=== PATIENT | male | born 1930 | race Caucasian/White ===

== ENCOUNTER → 2017-04-18 | Outpatient (CLI) | payer MEDICARE | END | disposition home or self-care (01) | LOC: CFH 12:03 | PROVIDERS: ATTEND Nurse Practitioner Primary Care | DX: I08.3 Combined rheumatic disorders of mitral, aortic and tricuspid valves (principal); I37.1 Nonrheumatic pulmonary valve insufficiency; I51.7 Cardiomegaly; E03.9 Hypothyroidism, unspecified; E78.2 Mixed hyperlipidemia; E55.9 Vitamin D deficiency, unspecified | CPT/HCPCS: 93306 ==

== ENCOUNTER → 2017-05-09 | Outpatient (CLI) | payer MEDICARE ==
[~2017-05-09] MED LIST: OMNIPAQUE 350 MG/ML, 100ML BOTTLE ONE
== END | disposition home or self-care (01) ==
LOC: CFH 11:54
PROVIDERS: ATTEND Nurse Practitioner Primary Care
DX: I77.810 Thoracic aortic ectasia (principal); I72.2 Aneurysm of renal artery; I77.4 Celiac artery compression syndrome; E55.9 Vitamin D deficiency, unspecified; E03.9 Hypothyroidism, unspecified; N28.9 Disorder of kidney and ureter, unspecified; E78.2 Mixed hyperlipidemia; E88.81 Metabolic syndrome and other insulin resistance; R53.83 Other fatigue; G25.0 Essential tremor; H35.30 Unspecified macular degeneration; K22.70 Barrett's esophagus without dysplasia; R41.89 Other symptoms and signs involving cognitive functions and awareness; R01.1 Cardiac murmur, unspecified; R93.1 Abnormal findings on diagnostic imaging of heart and coronary circulation
CPT/HCPCS: 71275; 82565; 93978; Q9967

== ENCOUNTER → 2017-06-27 | Outpatient (CLI) | payer MEDICARE ==
[~2017-06-27] MED LIST changes: -OMNIPAQUE 350 MG/ML, 100ML BOTTLE ONE; +REGADENOSON 0.4 MG/5 ML SYRINGE ONE
== END | disposition home or self-care (01) ==
LOC: CFH 07:48
PROVIDERS: ATTEND Internal Medicine Cardiovascular Disease
DX: I10 Essential (primary) hypertension (principal); R94.31 Abnormal electrocardiogram [ECG] [EKG]; I45.10 Unspecified right bundle-branch block
CPT/HCPCS: 78452; 93017; A9502; J2785

== ENCOUNTER 2018-05-04 15:56 | Inpatient (IN) | payer MEDICARE ==
[~2018-05-04] VITALS: Ht 172.7 cm; Wt 88.4 kg
[2018-05-04 16:30] LABS: BASOPHILS # (AUTO) 0.05 x10^3/uL (0-0.1); BASOPHILS % (AUTO) 1 % (0-1); EOSINOPHILS # (AUTO) 0.08 x10^3/uL (0-0.4); EOSINOPHILS % (AUTO) 1 % (1-7); LYMPHOCYTES # (AUTO) 1.69 x10^3/uL (1-3.4); LYMPHOCYTES % (AUTO) 26 % (22-44); MD NO; MEAN CORPUSCULAR HEMOGLOBIN 30.1 pg (27.5-34.5); MEAN CORPUSCULAR HGB CONC 33.2 g/dL (33.2-36.2); MEAN CORPUSCULAR VOLUME 90.6 fL (81-97); MONOCYTES # (AUTO) 0.47 x10^3/uL (0.2-0.8); MONOCYTES % (AUTO) 7 % (2-9); NEUTROPHILS # (AUTO) 4.19 x10^3/uL (1.8-6.8); NEUTROPHILS % (AUTO) 65 % (42-75); PLATELET COUNT 124 x10^3/uL (130-400); RED BLOOD COUNT 4.43 x10^6/uL (4.38-5.82); RED CELL DISTRIBUTION WIDTH 14.7 % (9.4-14.8)
[2018-05-04] MEDS ORDERED: ASPIRIN 81 MG TABLET CHEW PO ONE (16:30)
[2018-05-04] MEDS ORDERED: PLEASE ENTER HEIGHT AND WEIGHT MC SCH (16:30)
[2018-05-04] MEDS ORDERED: PLEASE ENTER ALLERGIES MC SCH (16:30)
[2018-05-04] MEDS ORDERED: SODIUM CHLORIDE FLUSH 10ML SYR IVF ONE (16:30)
[2018-05-04 16:39] LABS: INTERNATIONAL NORMALIZED RATIO 1.05 (0.93-1.1); PROTHROMBIN TIME 10.8 Seconds (9.6-11.5)
[2018-05-04 16:43] LABS: ALBUMIN 3.4 g/dL (3.4-5.0); ANION GAP 6 mmol/L (5-15); CALCIUM 7.8 mg/dL (8.5-10.1); CHLORIDE 112 mmol/L (98-107)
[2018-05-04 16:48] LABS: ALANINE AMINOTRANSFERASE 55 U/L (12-78); ALKALINE PHOSPHATASE 72 U/L (45-117); BILIRUBIN,TOTAL 0.9 mg/dL (0.2-1.0); CREATININE 1.71 mg/dL (0.7-1.3); TOTAL PROTEIN 6.4 g/dL (6.4-8.2); TROPONIN I 0.016 ng/mL (0.000-0.045)
[2018-05-04] MEDS ORDERED: PROP10TA PO (17:14)
[2018-05-04] MEDS ORDERED: LEVO75TA5 PO (17:14)
[2018-05-04] MEDS ORDERED: OMEP-110 PO (17:14)
[2018-05-04] MEDS ORDERED: FLUT9.9S NAS (17:18)
[2018-05-04] MEDS ORDERED: CEPH-375 PO (17:23)
[2018-05-04] MEDS ORDERED: SIMV40TA3 PO (17:23)
[2018-05-04] MEDS ORDERED: HEPARIN 25,000 UNITS/500ML PMX 500 ML IV PRN (18:00)
[2018-05-04] MEDS ORDERED: HEPARIN 25,000 UNITS/500ML PMX 500 ML ONE (18:07)
[2018-05-04] MEDS ORDERED: HEPARIN 5,000 UNITS/ML, 1ML ONE (18:07)
[2018-05-04] MEDS ORDERED: HEPARIN 5,000 UNITS/ML, 1ML IV PRN (18:30)
[2018-05-04] MEDS ORDERED: HEPARIN 5,000 UNITS/ML, 1ML IV ONE (18:30)
[2018-05-04] MEDS ORDERED: ENOXAPARIN 80 MG/0.8 ML SQ ONE (18:30)
[2018-05-04 18:37] VITALS: BP 154/88
[2018-05-04] MEDS ORDERED: DOCUSATE 100 MG CAPSULE PO PRN (23:00)
[2018-05-04] MEDS ORDERED: hydrALAzine 20 MG/ML, 1ML IVPush PRN (23:00)
[2018-05-04] MEDS ORDERED: HEPARIN 5,000 UNITS/ML, 1ML SQ SCH (23:00)
[2018-05-04] MEDS ORDERED: POLYETHYLENE GLYCOL 17 GM PACKET PO PRN (23:00)
[2018-05-04] MEDS ORDERED: ACETAMINOPHEN 325 MG TABLET PO PRN (23:00)
[2018-05-04] MEDS: SODIUM CHLORIDE 0.9% 1,000 ML IV SCH (23:51)
[2018-05-05 00:55] VITALS: BP 108/61
[2018-05-05] MEDS: HEPARIN 5,000 UNITS/ML, 1ML IV PRN ×2 (01:58→18:05)
[2018-05-05 03:21] LABS: MICROSCOPIC NOT IND
[2018-05-05 03:32] LABS: CULTURE INDICATED? NO
[2018-05-05 04:52] LABS: BASOPHILS # (AUTO) 0.03 x10^3/uL (0-0.1); BASOPHILS % (AUTO) 1 % (0-1); EOSINOPHILS # (AUTO) 0.11 x10^3/uL (0-0.4); EOSINOPHILS % (AUTO) 2 % (1-7); LYMPHOCYTES # (AUTO) 1.31 x10^3/uL (1-3.4); LYMPHOCYTES % (AUTO) 25 % (22-44); MD NO; MEAN CORPUSCULAR HEMOGLOBIN 30.8 pg (27.5-34.5); MEAN CORPUSCULAR HGB CONC 34.1 g/dL (33.2-36.2); MEAN CORPUSCULAR VOLUME 90.4 fL (81-97); MEAN PLATELET VOLUME 8.1 fL (7.4-10.4); MONOCYTES # (AUTO) 0.37 x10^3/uL (0.2-0.8); MONOCYTES % (AUTO) 7 % (2-9); NEUTROPHILS # (AUTO) 3.47 x10^3/uL (1.8-6.8); NEUTROPHILS % (AUTO) 66 % (42-75); PLATELET COUNT 107 x10^3/uL (130-400); RED BLOOD COUNT 4.16 x10^6/uL (4.38-5.82); RED CELL DISTRIBUTION WIDTH 14.6 % (9.4-14.8)
[2018-05-05 05:01] LABS: ANION GAP 7 mmol/L (5-15); CALCIUM 8.1 mg/dL (8.5-10.1); CHLORIDE 114 mmol/L (98-107)
[2018-05-05 05:22] LABS: ALANINE AMINOTRANSFERASE 47 U/L (12-78); ALKALINE PHOSPHATASE 61 U/L (45-117); BILIRUBIN,TOTAL 0.9 mg/dL (0.2-1.0); CHOL/HDL RATIO 3.5; CHOLESTEROL, TOTAL 133 mg/dL (140-239); CREATININE 1.62 mg/dL (0.7-1.3); FREE T4 (FREE THYROXINE) 1.23 ng/dL (0.76-1.46); HDL CHOL % 29 % (26-37); HDL CHOLESTEROL (DIRECT) 38 mg/dL (40-60); LDL CHOLESTEROL,CALCULATED 83 mg/dL (54-169); LDL/HDL RATIO 2.2 (0.5-3.0); TOTAL PROTEIN 5.9 g/dL (6.4-8.2); TRIGLYCERIDES 61 mg/dL (50-200); VLDL CHOLESTEROL 12 mg/dL (0-25)
[2018-05-05 05:25] LABS: HEMOGLOBIN A1C 6.2 % (4.2-6.3)
[2018-05-05 06:44] VITALS: BP 147/84
[2018-05-05] MEDS: LEVOTHYROXINE 75 MCG TABLET PO SCH (07:46)
[2018-05-05] MEDS: FLUTICASONE NASAL SPRAY 16GM NAS SCH ×2 (07:46→20:35)
[2018-05-05] MEDS: OMEPRAZOLE 20 MG CAPSULE.DR PO SCH ×2 (07:46→20:35)
[2018-05-05 12:28] VITALS: BP 153/69
[2018-05-05] MEDS: SODIUM CHLORIDE 0.9% 1,000 ML IV SCH (12:43)
[2018-05-05 19:35] VITALS: BP 126/62
[2018-05-05] MEDS: HEPARIN 25,000 UNITS/500ML PMX 500 ML IV PRN (20:25)
[2018-05-05] MEDS: SIMVASTATIN 40 MG TABLET PO SCH (20:35)
[2018-05-06] MEDS: HEPARIN 5,000 UNITS/ML, 1ML IV PRN (00:40)
[2018-05-06 03:07] VITALS: BP 119/62
[2018-05-06 06:50] VITALS: BP 138/76
[2018-05-06] MEDS: OMEPRAZOLE 20 MG CAPSULE.DR PO SCH ×2 (08:31→20:46)
[2018-05-06] MEDS: LEVOTHYROXINE 75 MCG TABLET PO SCH (08:32)
[2018-05-06] MEDS: FLUTICASONE NASAL SPRAY 16GM NAS SCH ×2 (08:32→20:45)
[2018-05-06] MEDS ORDERED: SODIUM CHLORIDE 0.9% 1,000 ML IV ONE (10:49)
[2018-05-06 13:32] VITALS: BP 115/74
[2018-05-06] MEDS: HEPARIN 25,000 UNITS/500ML PMX 500 ML IV PRN (16:47)
[2018-05-06 19:19] VITALS: BP 108/65
[2018-05-06] MEDS: SIMVASTATIN 40 MG TABLET PO SCH (20:47)
[2018-05-07 00:52] VITALS: BP 129/80
[2018-05-07 05:36] LABS: INTERNATIONAL NORMALIZED RATIO 1.04 (0.93-1.1); PROTHROMBIN TIME 10.7 Seconds (9.6-11.5)
[2018-05-07 05:44] LABS: BASOPHILS # (AUTO) 0.02 x10^3/uL (0-0.1); BASOPHILS % (AUTO) 0 % (0-1); EOSINOPHILS # (AUTO) 0.08 x10^3/uL (0-0.4); EOSINOPHILS % (AUTO) 1 % (1-7); LYMPHOCYTES # (AUTO) 0.99 x10^3/uL (1-3.4); LYMPHOCYTES % (AUTO) 15 % (22-44); MD NO; MEAN CORPUSCULAR HEMOGLOBIN 30.5 pg (27.5-34.5); MEAN CORPUSCULAR HGB CONC 33.5 g/dL (33.2-36.2); MEAN PLATELET VOLUME 8.1 fL (7.4-10.4); MONOCYTES # (AUTO) 0.41 x10^3/uL (0.2-0.8); MONOCYTES % (AUTO) 6 % (2-9); NEUTROPHILS # (AUTO) 5.33 x10^3/uL (1.8-6.8); NEUTROPHILS % (AUTO) 78 % (42-75); PLATELET COUNT 110 x10^3/uL (130-400); RED BLOOD COUNT 4.02 x10^6/uL (4.38-5.82); RED CELL DISTRIBUTION WIDTH 14.6 % (9.4-14.8)
[2018-05-07 05:46] LABS: CHLORIDE 111 mmol/L (98-107)
[2018-05-07 06:12] LABS: ALANINE AMINOTRANSFERASE 57 U/L (12-78); ALBUMIN 3.2 g/dL (3.4-5.0); ALKALINE PHOSPHATASE 66 U/L (45-117); ANION GAP 8 mmol/L (5-15); BILIRUBIN,TOTAL 1.1 mg/dL (0.2-1.0); CALCIUM 8.7 mg/dL (8.5-10.1); CREATININE 1.42 mg/dL (0.7-1.3); TOTAL PROTEIN 6.3 g/dL (6.4-8.2)
[2018-05-07] MEDS: FLUTICASONE NASAL SPRAY 16GM NAS SCH ×2 (07:42→20:14)
[2018-05-07 07:43] VITALS: BP 153/80
[2018-05-07] MEDS ORDERED: VANCOMYCIN 500 MG ONE (07:47)
[2018-05-07] MEDS ORDERED: VANCOMYCIN PMX 1GM/200ML 200 ML ONE (07:47)
[2018-05-07] MEDS ORDERED: FENTANYL PF 100 MCG/2ML ONE (07:47)
[2018-05-07] MEDS ORDERED: LIDOCAINE/PF 1%, 30ML ONE (07:47)
[2018-05-07] MEDS ORDERED: MIDAZOLAM 1 MG/ML, 5ML ONE (07:47)
[2018-05-07] MEDS ORDERED: ACETAMINOPHEN 325 MG TABLET PO PRN (10:00)
[2018-05-07] MEDS: LEVOTHYROXINE 75 MCG TABLET PO SCH (10:55)
[2018-05-07] MEDS: OMEPRAZOLE 20 MG CAPSULE.DR PO SCH ×2 (10:55→20:14)
[2018-05-07 13:00] VITALS: BP 116/57
[2018-05-07 15:02] LABS: ANION GAP 6 mmol/L (5-15); CALCIUM 8.3 mg/dL (8.5-10.1); CHLORIDE 111 mmol/L (98-107); CREATININE 1.43 mg/dL (0.7-1.3)
[2018-05-07 20:00] VITALS: BP 123/66
[2018-05-07] MEDS ORDERED: VANCOMYCIN PMX 1GM/200ML 200 ML IVPB ONE (20:00)
[2018-05-07] MEDS: SIMVASTATIN 40 MG TABLET PO SCH (20:14)
[2018-05-07] MEDS: SODIUM CHLORIDE FLUSH 10ML SYR IVF SCH (20:14)
[2018-05-08 02:15] VITALS: BP 150/86
[2018-05-08 05:12] LABS: ANION GAP 6 mmol/L (5-15); CHLORIDE 110 mmol/L (98-107)
[2018-05-08 05:13] LABS: CREATININE 1.28 mg/dL (0.7-1.3)
[2018-05-08] MEDS: LEVOTHYROXINE 75 MCG TABLET PO SCH (08:00)
[2018-05-08] MEDS: SODIUM CHLORIDE FLUSH 10ML SYR IVF SCH (08:00)
[2018-05-08] MEDS: OMEPRAZOLE 20 MG CAPSULE.DR PO SCH (08:00)
[2018-05-08 08:30] VITALS: BP 167/66
[2018-05-08] MEDS ORDERED: PROPRANOLOL 60 MG CAP.SA.24H PO SCH (10:00)
[2018-05-08] MEDS ORDERED: ASPIRIN 325 MG TABLET PO SCH (10:00)
[2018-05-08] MEDS: FLUTICASONE NASAL SPRAY 16GM NAS SCH (10:53)
[2018-05-08] MEDS ORDERED: ASPI325T17 PO (11:46)
[2018-05-08] MEDS ORDERED: ACET325T14 PO (11:46)
[2018-05-08] MEDS ORDERED: PROP60CA PO (11:46)
== END 2018-05-08 12:29 | disposition home or self-care (01) | DRG 242 ==
LOC: ED 17:37 → EDIP 17:38 → ED 17:51 → 5SO 18:31
PROVIDERS: ADMIT Internal Medicine; ATTEND Internal Medicine
PROC: 0JH606Z Insertion of Pacemaker, Dual Chamber into Chest Subcutaneous Tissue and Fascia, Open Approach (ICD-10-PCS; principal; 2018-05-07)
PROC: 02H63JZ Insertion of Pacemaker Lead into Right Atrium, Percutaneous Approach (ICD-10-PCS; 2018-05-07)
PROC: 02HK3JZ Insertion of Pacemaker Lead into Right Ventricle, Percutaneous Approach (ICD-10-PCS; 2018-05-07)
DX: I49.5 Sick sinus syndrome (principal); N17.0 Acute kidney failure with tubular necrosis; I48.92 Unspecified atrial flutter; I50.9 Heart failure, unspecified; I48.91 Unspecified atrial fibrillation; I34.0 Nonrheumatic mitral (valve) insufficiency; D69.6 Thrombocytopenia, unspecified; E03.9 Hypothyroidism, unspecified; E78.5 Hyperlipidemia, unspecified; E83.51 Hypocalcemia; G25.0 Essential tremor; I27.20 Pulmonary hypertension, unspecified; I45.10 Unspecified right bundle-branch block; I48.0 Paroxysmal atrial fibrillation; I77.810 Thoracic aortic ectasia; K21.9 Gastro-esophageal reflux disease without esophagitis; R73.9 Hyperglycemia, unspecified; T51.2X1A Toxic effect of 2-Propanol, accidental (unintentional), initial encounter; Y92.89 Other specified places as the place of occurrence of the external cause; Z79.82 Long term (current) use of aspirin; Z87.891 Personal history of nicotine dependence
CPT/HCPCS: 33208; 36415; 70450; 70551; 71045; 80048; 80053; 80061; 81003; 82306; 82607; 83036; 83735; 83880; 84100; 84439; 84443; 84484; 85025; 85520; 85610; 85730; 93005; 93306; 99156; 99157; C1779; C1785; C1892; J1644; J2250; J3010; J3370; J3490; J7030

== ENCOUNTER 2018-08-30 18:10 | Inpatient (IN) | payer MEDICARE ==
[~2018-08-30] VITALS: Ht 175.3 cm; Wt 91.9 kg
[~2018-08-30 18:10] MED LIST changes: +ACET325T14 PO; +ASPI325T17 PO; +CEPH-375 PO; +FLUT9.9S NAS; +LEVO75TA5 PO; +OMEP-110 PO; +PROP10TA PO; +PROP60CA PO; -REGADENOSON 0.4 MG/5 ML SYRINGE ONE; +SIMV40TA3 PO
[2018-08-30] MEDS ORDERED: APIX5TAB PO (18:35)
[2018-08-30 18:40] LABS: BASOPHILS # (AUTO) 0.03 x10^3/uL (0-0.1); BASOPHILS % (AUTO) 1 % (0-1); EOSINOPHILS % (AUTO) 2 % (1-7); LYMPHOCYTES # (AUTO) 1.45 x10^3/uL (1-3.4); LYMPHOCYTES % (AUTO) 25 % (22-44); MD NO; MEAN CORPUSCULAR HEMOGLOBIN 30.3 pg (27.5-34.5); MEAN CORPUSCULAR HGB CONC 32.7 g/dL (33.2-36.2); MEAN CORPUSCULAR VOLUME 92.7 fL (81-97); MEAN PLATELET VOLUME 8.2 fL (7.4-10.4); MONOCYTES # (AUTO) 0.43 x10^3/uL (0.2-0.8); MONOCYTES % (AUTO) 8 % (2-9); NEUTROPHILS # (AUTO) 3.72 x10^3/uL (1.8-6.8); NEUTROPHILS % (AUTO) 65 % (42-75); PLATELET COUNT 109 x10^3/uL (130-400); RED BLOOD COUNT 4.58 x10^6/uL (4.38-5.82); RED CELL DISTRIBUTION WIDTH 16.6 % (9.4-14.8)
[2018-08-30 18:51] LABS: ALBUMIN 3.5 g/dL (3.4-5.0); ANION GAP 6 mmol/L (5-15); CALCIUM 8.7 mg/dL (8.5-10.1); CHLORIDE 112 mmol/L (98-107)
[2018-08-30 18:54] LABS: ALANINE AMINOTRANSFERASE 25 U/L (12-78); ALKALINE PHOSPHATASE 102 U/L (45-117); BILIRUBIN,TOTAL 1.3 mg/dL (0.2-1.0); CREATININE 1.59 mg/dL (0.7-1.3); TOTAL PROTEIN 7.2 g/dL (6.4-8.2)
[2018-08-30] MEDS ORDERED: MORPHINE SULFATE 4 MG/ML, 1ML IVPush PRN (19:00)
[2018-08-30] MEDS ORDERED: ONDANSETRON 2MG/ML, 2ML IVPush ONE (19:00)
[2018-08-30 19:10] LABS: TROPONIN I 0.058 ng/mL (0.000-0.045)
[2018-08-30 19:57] LABS: MICROSCOPIC INDICATED
[2018-08-30 20:10] LABS: CULTURE INDICATED? NO
[2018-08-30] MEDS ORDERED: ONDANSETRON 2MG/ML, 2ML ONE (21:47)
[2018-08-30] MEDS ORDERED: MORPHINE SULFATE 4 MG/ML, 1ML ONE (21:57)
[2018-08-30] MEDS ORDERED: ACETAMINOPHEN 325 MG TABLET PO PRN (22:30)
[2018-08-30] MEDS ORDERED: morphine SULFATE 10 MG/ML, 1ML IVPush PRN (22:30)
[2018-08-30] MEDS ORDERED: ONDANSETRON ODT 4 MG PO PRN (22:30)
[2018-08-30] MEDS: BISACODYL 10 MG SUPP PR SCH (23:13)
[2018-08-30] MEDS: SODIUM CHLORIDE 0.9% 1,000 ML IV SCH (23:14)
[2018-08-31 02:18] VITALS: BP 122/79
[2018-08-31 04:49] LABS: ALANINE AMINOTRANSFERASE 21 U/L (12-78); ALBUMIN 3.1 g/dL (3.4-5.0); ANION GAP 10 mmol/L (5-15); CHLORIDE 110 mmol/L (98-107)
[2018-08-31 04:50] LABS: MEAN CORPUSCULAR HEMOGLOBIN 30.4 pg (27.5-34.5); MEAN CORPUSCULAR HGB CONC 32.8 g/dL (33.2-36.2); MEAN CORPUSCULAR VOLUME 92.5 fL (81-97); RED BLOOD COUNT 4.14 x10^6/uL (4.38-5.82); RED CELL DISTRIBUTION WIDTH 16.8 % (9.4-14.8)
[2018-08-31 04:54] LABS: ALKALINE PHOSPHATASE 85 U/L (45-117); BILIRUBIN,TOTAL 1.4 mg/dL (0.2-1.0); CREATININE 1.46 mg/dL (0.7-1.3); TOTAL PROTEIN 6.4 g/dL (6.4-8.2)
[2018-08-31 05:46] LABS: BASOPHILS # (AUTO) 0.01 x10^3/uL (0-0.1); BASOPHILS % (AUTO) 0 % (0-1); EOSINOPHILS # (AUTO) 0.03 x10^3/uL (0-0.4); EOSINOPHILS % (AUTO) 1 % (1-7); LYMPHOCYTES # (AUTO) 0.98 x10^3/uL (1-3.4); LYMPHOCYTES % (AUTO) 17 % (22-44); MD SCAN; MONOCYTES # (AUTO) 0.33 x10^3/uL (0.2-0.8); MONOCYTES % (AUTO) 6 % (2-9); NEUTROPHILS # (AUTO) 4.48 x10^3/uL (1.8-6.8); NEUTROPHILS % (AUTO) 77 % (42-75); PLATELET COUNT 92 x10^3/uL (130-400)
[2018-08-31 08:14] VITALS: BP 137/85
[2018-08-31] MEDS: PROPRANOLOL 60 MG CAP.SA.24H PO SCH (08:20)
[2018-08-31] MEDS: LEVOTHYROXINE 75 MCG TABLET PO SCH (08:20)
[2018-08-31] MEDS: BISACODYL 10 MG SUPP PR SCH (08:20)
[2018-08-31 11:37] LABS: TROPONIN I 0.057 ng/mL (0.000-0.045)
[2018-08-31] MEDS: SODIUM CHLORIDE 0.9% 1,000 ML IV SCH (13:29)
[2018-08-31 14:31] VITALS: BP 124/78
[2018-08-31] MEDS: SIMVASTATIN 40 MG TABLET PO SCH (21:37)
[2018-08-31 21:41] VITALS: BP 117/75
[2018-09-01 03:08] VITALS: BP 132/84
[2018-09-01] MEDS: LEVOTHYROXINE 75 MCG TABLET PO SCH (05:15)
[2018-09-01 05:36] LABS: MEAN CORPUSCULAR HGB CONC 32.7 g/dL (33.2-36.2); MEAN CORPUSCULAR VOLUME 91.8 fL (81-97); MEAN PLATELET VOLUME 8.4 fL (7.4-10.4); PLATELET COUNT 89 x10^3/uL (130-400); RED CELL DISTRIBUTION WIDTH 16.6 % (9.4-14.8)
[2018-09-01 05:40] LABS: CHLORIDE 111 mmol/L (98-107)
[2018-09-01 05:45] LABS: ANION GAP 7 mmol/L (5-15); CALCIUM 8.2 mg/dL (8.5-10.1); CREATININE 1.31 mg/dL (0.7-1.3)
[2018-09-01 05:59] LABS: BASOPHILS # (AUTO) 0.02 x10^3/uL (0-0.1); BASOPHILS % (AUTO) 1 % (0-1); EOSINOPHILS # (AUTO) 0.06 x10^3/uL (0-0.4); EOSINOPHILS % (AUTO) 1 % (1-7); LYMPHOCYTES # (AUTO) 1.21 x10^3/uL (1-3.4); LYMPHOCYTES % (AUTO) 24 % (22-44); MD SCAN; MONOCYTES # (AUTO) 0.31 x10^3/uL (0.2-0.8); MONOCYTES % (AUTO) 6 % (2-9); NEUTROPHILS # (AUTO) 3.41 x10^3/uL (1.8-6.8); NEUTROPHILS % (AUTO) 68 % (42-75)
[2018-09-01 08:04] VITALS: BP 156/94
[2018-09-01] MEDS: BISACODYL 10 MG SUPP PR SCH (08:08)
[2018-09-01] MEDS: PROPRANOLOL 60 MG CAP.SA.24H PO SCH ×2 (08:57→09:00)
[2018-09-01] MEDS: SODIUM CHLORIDE 0.9% 1,000 ML IV SCH ×2 (11:28→22:32)
[2018-09-01] MEDS: LEVOTHYROXINE 100 MCG INJ IVPush SCH (14:16)
[2018-09-01 15:03] VITALS: BP 160/89
[2018-09-01 20:11] VITALS: BP 123/75
[2018-09-01] MEDS: SIMVASTATIN 40 MG TABLET PO SCH (20:36)
[2018-09-02 01:22] VITALS: BP 155/86
[2018-09-02] MEDS: ZIPRASIDONE 20 MG INJ IM PRN ×2 (02:53→09:21)
[2018-09-02 07:54] VITALS: BP 141/92
[2018-09-02] MEDS: BISACODYL 10 MG SUPP PR SCH (09:00)
[2018-09-02] MEDS: LEVOTHYROXINE 100 MCG INJ IVPush SCH (09:20)
[2018-09-02] MEDS: PROPRANOLOL 60 MG CAP.SA.24H PO SCH (09:21)
[2018-09-02] MEDS: SODIUM CHLORIDE 0.9% 1,000 ML IV SCH (09:59)
[2018-09-02 13:00] VITALS: BP 105/61
[2018-09-02 19:45] VITALS: BP 117/75
[2018-09-02] MEDS: SIMVASTATIN 40 MG TABLET PO SCH (20:00)
[2018-09-03 03:59] VITALS: BP 126/87
[2018-09-03 05:53] LABS: MEAN CORPUSCULAR HEMOGLOBIN 30.1 pg (27.5-34.5); MEAN CORPUSCULAR HGB CONC 32.6 g/dL (33.2-36.2); MEAN CORPUSCULAR VOLUME 92.2 fL (81-97); RED BLOOD COUNT 4.51 x10^6/uL (4.38-5.82); RED CELL DISTRIBUTION WIDTH 16.3 % (9.4-14.8)
[2018-09-03] MEDS ORDERED: LEVOTHYROXINE 75 MCG TABLET PO SCH (06:00)
[2018-09-03 06:04] LABS: CHLORIDE 110 mmol/L (98-107)
[2018-09-03 06:35] LABS: ANION GAP 10 mmol/L (5-15); CALCIUM 8.3 mg/dL (8.5-10.1); CREATININE 1.26 mg/dL (0.7-1.3)
[2018-09-03 06:43] LABS: BASOPHILS # (AUTO) 0.01 x10^3/uL (0-0.1); BASOPHILS % (AUTO) 0 % (0-1); EOSINOPHILS # (AUTO) 0.08 x10^3/uL (0-0.4); EOSINOPHILS % (AUTO) 1 % (1-7); LYMPHOCYTES # (AUTO) 1.06 x10^3/uL (1-3.4); LYMPHOCYTES % (AUTO) 17 % (22-44); MD SCAN; MEAN PLATELET VOLUME 8.2 fL (7.4-10.4); MONOCYTES # (AUTO) 0.28 x10^3/uL (0.2-0.8); MONOCYTES % (AUTO) 5 % (2-9); NEUTROPHILS # (AUTO) 4.68 x10^3/uL (1.8-6.8); NEUTROPHILS % (AUTO) 77 % (42-75); PLATELET COUNT 96 x10^3/uL (130-400)
[2018-09-03 07:49] VITALS: BP 151/91
[2018-09-03] MEDS: PROPRANOLOL 60 MG CAP.SA.24H PO SCH (08:05)
[2018-09-03] MEDS: BISACODYL 10 MG SUPP PR SCH (08:05)
[2018-09-03 13:14] VITALS: BP 131/79
[2018-09-03] MEDS ORDERED: APIXABAN 5 MG TABLET PO SCH (13:30)
== END 2018-09-03 14:43 | DRG 388 ==
LOC: ED 19:52 → EDIP 20:57 → 4NOR 22:10
PROVIDERS: ADMIT Internal Medicine; ATTEND Internal Medicine
DX: K56.601 Complete intestinal obstruction, unspecified as to cause (principal); N17.0 Acute kidney failure with tubular necrosis; G93.41 Metabolic encephalopathy; J98.11 Atelectasis; D68.69 Other thrombophilia; D69.6 Thrombocytopenia, unspecified; D72.829 Elevated white blood cell count, unspecified; E03.9 Hypothyroidism, unspecified; E78.5 Hyperlipidemia, unspecified; G25.0 Essential tremor; I34.0 Nonrheumatic mitral (valve) insufficiency; I48.0 Paroxysmal atrial fibrillation; I50.9 Heart failure, unspecified; I72.2 Aneurysm of renal artery; K80.20 Calculus of gallbladder without cholecystitis without obstruction; Z79.01 Long term (current) use of anticoagulants; Z95.0 Presence of cardiac pacemaker
CPT/HCPCS: 36415; 71045; 74018; 74177; 74250; 80048; 80053; 81001; 82306; 82607; 83605; 83690; 83735; 83880; 84100; 84484; 85025; 93005; 96374; 96375; G0378; J2405; J3486; J7030

== ENCOUNTER → 2019-03-06 | Outpatient (CLI) | payer MEDICARE ==
[~2019-03-06] MED LIST changes: +APIX5TAB PO; -PROP10TA PO; +PROP10TA16 PO
== END | disposition home or self-care (01) ==
LOC: CFH 14:57
PROVIDERS: ATTEND Nurse Practitioner Primary Care
DX: M47.817 Spondylosis without myelopathy or radiculopathy, lumbosacral region (principal); M48.07 Spinal stenosis, lumbosacral region; M25.78 Osteophyte, vertebrae
CPT/HCPCS: 72100

== ENCOUNTER 2019-03-21 13:02 | Outpatient (CLI) | payer MEDICARE | END 2019-03-21 23:59 | disposition home or self-care (01) | LOC: CFH 13:02 | PROVIDERS: ATTEND Internal Medicine | DX: M43.26 Fusion of spine, lumbar region (principal) | CPT/HCPCS: 72131 ==

== ENCOUNTER 2019-08-05 08:59 | Outpatient (CLI) | payer MEDICARE | END 2019-08-05 23:59 | disposition home or self-care (01) | LOC: WOUND 08:59 | PROVIDERS: ATTEND Internal Medicine | DX: L02.212 Cutaneous abscess of back [any part, except buttock and flank] (principal); S31.000D Unspecified open wound of lower back and pelvis without penetration into retroperitoneum, subsequent encounter; N18.3 Chronic kidney disease, stage 3 (moderate); E03.9 Hypothyroidism, unspecified; K21.9 Gastro-esophageal reflux disease without esophagitis; Z95.0 Presence of cardiac pacemaker; Z96.653 Presence of artificial knee joint, bilateral | CPT/HCPCS: 97597 ==